=== PATIENT | female | born 2000 ===

== ENCOUNTER 2021-03-31 17:11 | Emergency (ER) | payer MEDICAID ==
[~2021-03-31] VITALS: Ht 170.2 cm; Wt 72.6 kg
[2021-03-31 18:58] VITALS: BP 103/64
== END 2021-03-31 19:08 | disposition home or self-care (01) ==
LOC: EEVIPCON 17:11 → ER 17:11
DX: R22.0 Localized swelling, mass and lump, head (principal); R20.2 Paresthesia of skin; R51.9 Headache, unspecified; Y04.2XXA Assault by strike against or bumped into by another person, initial encounter; Y93.89 Activity, other specified; Y92.89 Other specified places as the place of occurrence of the external cause; Y99.8 Other external cause status
CPT/HCPCS: 70450; 70486